=== PATIENT | female | born 1955 ===

== ENCOUNTER 2016-09-03 14:08 | Emergency (ER) | payer MEDICAID ==
[2016-09-03 14:30] VITALS: BMI 25.4
[2016-09-03] MEDS ORDERED: Sodium Chloride 0.9% 1,000 ML IV STA (14:32)
[2016-09-03 14:33] VITALS: RESP 17; TEMP 98.2; O2SAT 100
--- NOTE | 2016-09-03 14:36 | ED PDOC ---
Arrival/HPI - General Time Seen by Provider: 09/03/16 14:14 Historian: Patient - History of Present Illness Narrative History of Present Illness (Text): 09/03/16 14:43 The patient is a 61yo female, PMHx of HTN, presents to ED for evaluation of epigastric abdominal pain, present since 11am this morning. Pt reports associated nausea, dizziness and palpitations. She reports she went home and since the onset of her symptoms, has had 3x episodes of loose stools. She denies any fever, difficulty breathing or pain at present. Pt also denies any recent travels. Of note, pt reports she has had issues with palpitations before and recently had a stress test; additionally reports she is scheduled for a nuclear stress test in 1 month. She offers no additional medical complaints. Time/Duration: 1-3 hours Past Medical History - Provider Review Nursing Documentation Reviewed: Yes - Travel History Have you recently traveled outside [place] w/in the past 3 mons?: No - Cardiac Hx Hypertension: Yes Family/Social History - Physician Review Nursing Documentation Reviewed: Yes Family/Social History: Unknown Family HX Allergies/Home Meds Allergies/Adverse Reactions: Allergies Penicillins Allergy (Verified 09/03/16 14:30) RASH Home Medications: Home Meds Medication Instructions Recorded Confirmed Metoprolol Succinate [Toprol XL] 100 mg PO BID 09/03/16 09/03/16 Zolpidem [Ambien] 5 mg PO HS PRN 09/03/16 09/03/16 Review of Systems - Review of Systems Respiratory: absent: SOB Cardiovascular: Palpitations Gastrointestinal: Abdominal Pain, Stool Changes Neurological: Dizziness Physical Exam Vital Signs Temp Pulse Resp BP Pulse Ox 09/03/16 14:32 98.2 F 65 17 148/65 100 Blood Pressure: Normal Pulse: Regular Respiratory Rate: Normal Appearance: Positive for: Well-Appearing, Non-Toxic, Comfortable Pain Distress: None Mental Status: Positive for: Alert and Oriented X 3 - Systems Exam Head: Present: Atraumatic, Normocephalic Pupils: Present: PERRL Extroacular Muscles: Present: EOMI Conjunctiva: Present: Normal Mouth: Present: Moist Mucous Membranes Neck: Present: Normal Range of Motion Respiratory/Chest: Present: Clear to Auscultation, Good Air Exchange. No: Respiratory Distress, Accessory Muscle Use Cardiovascular: Present: Regular Rate and Rhythm, Normal S1, S2. No: Murmurs Abdomen: Present: Normal Bowel Sounds. No: Tenderness, Distention, Peritoneal Signs Back: Present: Normal Inspection Upper Extremity: Present: Normal Inspection. No: Cyanosis, Edema Lower Extremity: Present: Normal Inspection. No: Edema Neurological: Present: GCS=15, CN II-XII Intact, Speech Normal Skin: Present: Warm, Dry, Normal Color. No: Rashes Psychiatric: Present: Alert, Oriented x 3, Normal Insight, Normal Concentration Medical Decision Making ED Course and Treatment: Impression: Abdominal pain, dizziness secondary to dehydration Differential Diagnosis included but are not limited to: Gastroenteritis, benign positional vertigo Plan: -- Pepcid 20 mg IVP -- Reglan 10 mg IVP -- IV Fluids -- Lipase -- CMP -- CXR -- Reassess and disposition Progress Notes: 09/03/16 15:29 Patient's symptoms resolved. No longer feels dizzy or abdominal pain. No nausea. She is tolerating PO fluids. Abdomen is soft and not tender. She states that she will make sure to follow up with her PMD and return if symptoms worsen or any other concern. - Lab Interpretations Lab Results: 09/03/16 14:40 09/03/16 14:40 Lab Results 09/03/16 14:40: Sodium 139, Potassium 4.0, Chloride 100, Carbon Dioxide 27, Anion Gap 16, BUN 15, Creatinine 0.6, Est GFR ( Amer) > 60, Est GFR (Non- Af Amer) > 60, Random Glucose 93, Calcium 10.3, Total Bilirubin 0.4, AST 30, ALT 36, Alkaline Phosphatase 69, Total Protein 7.7, Albumin 4.4, Globulin 3.2, Albumin/Globulin Ratio 1.4, Lipase 190 09/03/16 14:40: WBC 6.5, RBC 4.10, Hgb 12.0, Hct 36.0, MCV 87.8, MCH 29.3, MCHC 33.3, RDW 13.1, Plt Count 247, MPV 10.1, Gran % 62.5, Lymph % (Auto) 28.3, Hardin % (Auto) 7.4 H, Eos % (Auto) 1.5, Baso % (Auto) 0.3, Gran # 4.03, Lymph # 1.8, Hardin # 0.5, Eos # 0.1, Baso # 0.02 I have reviewed the lab results: Yes Interpretation: All labs normal - RAD Interpretation Radiology Orders: 09/03/16 14:32 CHEST PORTABLE [RAD] Stat CXR negative - EKG Interpretation EKG Interpretation (Text): 09/03/16 15:05 Normal sinus. [address] elevations, nl intervals 09/03/16 15:30 Interpreted by ED Physician: Yes - Medication Orders Current Medication Orders: Sodium Chloride (Sodium Chloride 0.9%) 1,000 mls @ 1,000 mls/hr IV .Q1H STA Stop: 09/03/16 15:31 Last Admin: 09/03/16 14:46 Dose: 1,000 mls/hr Discontinued Medications Famotidine (Pepcid) 20 mg IVP STAT STA Stop: 09/03/16 14:33 Last Admin: 09/03/16 14:47 Dose: 20 mg Metoclopramide HCl (Reglan) 10 mg IVP STAT STA Stop: 09/03/16 14:34 Last Admin: 09/03/16 14:47 Dose: 10 mg - Scribe Statement Amrita Cooney Provider Scribe Attestation: All medical record entries made by the Scribe were at my direction and personally dictated by me. I have reviewed the chart and agree that the record accurately reflects my personal performance of the history, physical exam, medical decision making, and the department course for this patient. I have also personally directed, reviewed, and agree with the discharge instructions and disposition. Disposition/Present on Arrival - Present on Arrival Any Indicators Present on Arrival: No - Disposition Have Diagnosis and Disposition been Completed?: Yes Diagnosis: Abdominal pain Disposition: HOME/ ROUTINE Disposition Time: 15:30 Patient Plan: Discharge Patient Problems: Current Active Problems Problem Status Onset Abdominal pain Acute Condition: IMPROVED Discharge Instructions (ExitCare): Dehydration (ED), Acute Abdominal Pain (ED) Additional Instructions: Ms Erickson, thank you for letting us take care of you today. Your provider was Dr. Mancuso. You were treated for Abdominal Pain, Dehydration. The emergency medical care you received today was directed at your acute symptoms. If you were prescribed any medication, please fill it and take as directed. It may take several days for your symptoms to resolve. Return to the Emergency Department if your symptoms worsen, do not improve, or if you have any other problems. Please contact your doctor or call one of the physicians/clinics you have been referred to that are listed on the Patient Visit Information form that is included in your discharge packet. Bring any paperwork you were given at discharge with you along with any medications you are taking to your follow up visit. Our treatment cannot replace ongoing medical care by a primary care provider (PCP) outside of the emergency department. Thank you for allowing the [facility] team to be part of your care today. If you had an X-Ray or CT scan: A Radiologist will review the ED reading if any change in treatment is needed we will contact you. If you had a blood, urine, or wound culture: It will take several days for the results, if any change in treatment is needed we will contact you. If you had an STI test: It will take 48 hours for the results. Please call after 1 week if you have not heard back. Prescriptions: Ranitidine HCl [Zantac] 150 mg PO BID PRN #30 tablet PRN Reason: Pain, Mild (1-3) Referrals: Abraham Sánchez MD [Primary Care Provider] - Follow up with primary Forms: [employer] (Czech)
[2016-09-03 14:53] LABS: BASO # 0.02 K/mm3 (0.0-2.0); BASO % 0.3 % (0.0-3.0); EOS # 0.1 (0.0-0.7); EOS % 1.5 % (1.5-5.0); GRAN # 4.03 (1.4-6.5); GRAN % 62.5 % (50.0-68.0); LYMPH # 1.8 (1.2-3.4); LYMPH % 28.3 % (22.0-35.0); MEAN CELL VOLUME 87.8 fL (80.0-105.0); MEAN CORPUSCULAR HEMOGLOBIN 29.3 pg (25.0-35.0); MEAN CORPUSCULAR HGB CONC 33.3 g/dl (31.0-37.0); MEAN PLATELET VOLUME 10.1 fl (7.0-11.0); MONO # 0.5 (0.1-0.6); MONO % 7.4 % (1.0-6.0); PLATELET COUNT 247 10^3/uL (120.0-450.0); RED CELL DISTRIBUTION WIDTH 13.1 % (11.5-14.5); WHITE BLOOD COUNT 6.5 10^3/ul (4.5-11.0)
[2016-09-03 15:01] LABS: ALB/GLOB RATIO 1.4 (1.1-1.8); ALBUMIN 4.4 g/dL (3.0-4.8); ALT/SGPT 36 U/L (7-56); AST/SGOT 30 U/L (15-39); BLOOD UREA NITROGEN 15 mg/dL (7-21); CALCIUM 10.3 mg/dL (8.4-10.5); GFR AFRICAN-AMERICAN > 60; GFR NON-AFRICAN AMERICAN > 60; LIPASE 190 U/L (23-300)
--- NOTE | 2016-09-03 15:22 | RAD ---
HISTORY: abd pain COMPARISON: No prior. FINDINGS: LUNGS: No active pulmonary disease. PLEURA: No significant pleural effusion identified, no pneumothorax apparent. CARDIOVASCULAR: Normal. OSSEOUS STRUCTURES: No significant abnormalities. VISUALIZED UPPER ABDOMEN: Normal. OTHER FINDINGS: None. IMPRESSION: No active disease.
[2016-09-03 15:34] VITALS: BP 130/54; PULSE 67
--- NOTE | 2016-09-04 16:44 | CARD ---
APPROVED REPORT EKG Measurement Heart [id number] <Conclusion> Normal sinus rhythm Normal ECG
== END 2016-09-03 15:47 | disposition home or self-care (01) ==
LOC: ED 14:08
DX: R10.9 Unspecified abdominal pain (principal)
CPT/HCPCS: 71010; 80053; 83690; 85025; 93005; 96361; 96374; 96375; 99285; J2765; J7040